=== PATIENT | female | born 1985 | race Caucasian/White ===

== ENCOUNTER 2025-08-01 13:03 | Emergency (ER) | payer MEDICAID ==
[~2025-08-01] VITALS: Ht 165.1 cm; Wt 80.0 kg
[2025-08-01 13:18] VITALS: O2SAT 99
[2025-08-01 14:37] LABS: CLARITY URINE CLEAR (CLEAR); COLOR URINE YELLOW (YELLOW); GLUCOSE URINE NEGATIVE (NEGATIVE); KETONES URINE NEGATIVE (NEGATIVE); LEUKOCYTE ESTERASE URINE TRACE (NEGATIVE); NITRITE URINE NEGATIVE (NEGATIVE); OCCULT BLOOD URINE NEGATIVE (NEGATIVE); PH URINE 7.5 (4.5-8.0); PROTEIN URINE NEGATIVE (NEGATIVE); SPECIFIC GRAVITY URINE 1.009 (1.005-1.030); UROBILINOGEN URINE 0.2 E.U./dL (0.2-1.0)
[2025-08-01 14:51] LABS: BACTERIA URINE NONE SEEN; RBC URINE 0-2 /hpf (0-2); SQUAMOUS EPITHELIAL CELL URINE 1+ /lpf (RARE/1+); WBC URINE 0-2 /hpf (0-2); YEAST URINE NONE SEEN
[2025-08-01 14:53] LABS: BASOPHILS % 0.5 % (0.0-2.0); EOSINOPHILS % 1.6 % (0.0-5.0); HEMATOCRIT. 39.8 % (36.0-48.0); HEMOGLOBIN. 13.1 g/dL (12.0-16.0); LYMPHOCYTES % 30.1 % (20.0-50.0); MEAN PLATELET VOLUME 7.7 fl (7.4-10.4); MONOCYTES % 5.7 % (2.0-8.0); NEUTROPHILS % 62.1 % (40.0-76.0); PLATELET 251 x1000/uL (130-400); RED BLOOD CELL COUNT 5.11 mill/uL (4.2-5.4); RED CELL DISTRIBUTION WIDTH 13.7 % (11.6-14.6)
[2025-08-01 15:07] LABS: CREATININE 0.9 mg/dL (0.6-1.0); UREA NITROGEN BLOOD 9 mg/dL (9-23)
[2025-08-01 15:08] LABS: ASPARTATE AMINOTRANSFERASE 16 IU/L (<34)
[2025-08-01 15:09] LABS: BILIRUBIN DIRECT 0.2 mg/dL (<=3.0); BILIRUBIN TOTAL 0.7 mg/dL (0.1-1.0); PROTEIN TOTAL 7.2 g/dL (6.0-8.3)
[2025-08-01 15:45] LABS: HCG SCREEN NEGATIVE
[2025-08-01] MEDS ORDERED: IBUP-1455 MT (16:46)
[2025-08-01] MEDS ORDERED: FAMO-135 MT (16:46)
[2025-08-01] MEDS: KETOROLAC 30MG/ML VIAL IM ONE (17:09)
[2025-08-01] MEDS: MAGNESIUM/ALUMINUM HYDROXIDE/SIMETHICONE 30ML UDC PO ONE (17:09)
[2025-08-01] MEDS: ONDANSETRON 4MG ODT PO ONE (17:09)
[2025-08-01] MEDS: FAMOTIDINE 20MG TABLET PO ONE (17:09)
[2025-08-01 17:16] VITALS: BP 138/94; PULSE 81; RESP 18; TEMP 36.9; O2SAT 99
== END 2025-08-01 17:17 | disposition home or self-care (01) ==
LOC: ER 13:03
DX: K29.70 Gastritis, unspecified, without bleeding (principal); K80.20 Calculus of gallbladder without cholecystitis without obstruction; R16.1 Splenomegaly, not elsewhere classified; Z79.899 Other long term (current) drug therapy
CPT/HCPCS: 99285; 76700; 80076; 80048; 81003; 84703; 83690; 85025; 36415; 96372; J1885; Q0162